=== PATIENT | male | born 1960 | race Caucasian/White ===

== ENCOUNTER 2016-12-31 12:12 | Day surgery (SDC) | payer MEDICAID ==
[~2016-12-31] VITALS: Ht 279.4 cm; Wt 81.8 kg
[~2016-12-31 12:12] MED LIST: COREG6.25 MG PO; GLUCOTROL XL 1010 MG PO; LIPITOR10 MG PO; OFEV PO; OMEPRAZOLE40 MG PO; ZANTAC150 MG PO
[2016-12-31 12:56] VITALS: BP 116/85; Ht 279.4 cm; Wt 81.8 kg
[2016-12-31 13:36] LABS: BASOPHILS 0.3 % (0.0-2.0); EOSINOPHILS 1.7 % (0-7); HEMATOCRIT 47.8 % (42.0-54.0); HEMOGLOBIN 16.1 g/dL (13.5-17.5); IMMATURE GRANULOCYTES 0.2 % (0-5); LYMPHOCYTES 45.8 % (15-50); MCH 31.7 pg (26.0-34.0); MCHC 33.7 g/dL (31.0-37.0); MCV 94.1 fL (80.0-100.0); MEAN PLATELET VOLUME 10.7 fL (7.4-10.4); MONOCYTES 7.8 % (2-11); NEUTROPHILS 44.2 % (40-80); RBC 5.08 10x6/uL (4.20-6.10); RDW 12.9 % (11.5-14.5); WBC 9.8 10x3/uL (4.8-10.8)
[2016-12-31 13:38] LABS: PLATELET COUNT 219 10x3/uL (130-400)
[2016-12-31 14:00] LABS: CALC OSMOLALITY 278 mosm/kg (275-300); CALCIUM 8.9 mg/dL (8.5-10.1); CARBON DIOXIDE 27.8 mmol/L (21.0-32.0); CHLORIDE - SERUM 103 mmol/L (98-107); GLUCOSE 110 mg/dL (74-106); POTASSIUM - SERUM 3.5 mmol/L (3.5-5.1); SODIUM 140 mmol/L (136-145); UREA NITROGEN 11 mg/dL (7-18); eGFR NON AFRICAN AMERICAN 83 mL/min (90-120)
--- NOTE | 2016-12-31 17:30 | NUR ---
DR MALIK SPOKE WITH PATIENT. DISCHARGE INSTRUCTIONS GIVEN, VOICED UNDERTSTANDING.
--- NOTE | 2016-12-31 17:45 | NUR ---
DISCHARGED HOME VIA .
--- NOTE | 2017-01-06 13:54 | OP ---
PATIENT NAME: SEBASTIAN MOLINA MEDICAL RECORD: [id number] :64 LOCATION:[facility] ADMISSION DATE: SURGEON: CB MALIK MD DATE OF OPERATION: 12/31/2016 PROCEDURE: Colonoscopy with biopsy. REFERRING PHYSICIAN: Dr. Helton. INDICATIONS: Mr. Molina is a very pleasant 56-year-old gentleman with a history of pulmonary fibrosis and peptic ulcer disease. EGD on 05/07/2016 showed 3 antral ulcers (biopsies negative for H. pylori). Follow up EGD on 08/05/2016 showed healed gastric ulcer, small hiatal hernia, mild gastritis. He presents for outpatient screening colonoscopy. PREMEDICATIONS: Total IV anesthesia (pulmonary fibrosis) propofol 300 mg. INSTRUMENT: [employer] video colonoscope. PROCEDURE AND FINDINGS: After receiving informed consent, Mr. Molina was placed in left lateral decubitus position, sedated as per anesthesia. After achieving an adequate level of sedation, digital rectal exam was performed that showed no external hemorrhoidal tags, fissures or fistulas, normal sphincter tone, no palpable rectal masses. Colonoscope was introduced per rectally and advanced to the cecum. The cecum, IC valve, and appendiceal orifice were identified and appeared normal. As the colonoscope was withdrawn, careful inspection was made of the nayak of the colon. Overall, mucosa had normal vascular and fold pattern. There was mild patchy erythema noted in the mucosa of the descending and sigmoid colon and biopsies were taken from these regions to rule out microscopic colitis. Retroflexion in rectum showed mild internal hemorrhoids with a few hemorrhoidal tags. Withdrawal time was 7 minutes. Mr. Molina, tolerated the procedure well, no immediate complications. ASSESSMENT: 1. Nonspecific erythema involving the left colon may be prep related, status post biopsy. 2. Mild internal hemorrhoids. RECOMMENDATIONS: 1. Follow up histopathology. 2. High fiber diet. 3. Screening colonoscopy in 5 years. TRANSINT:[id number] Voice Confirmation ID: [id number] DOCUMENT ID: [id number] CB MALIK MD at 1354 CC: VIVIAN HELTON and ADELA STARK MD [id number] DICTATION DATE: 12/31/16 1606 [employer] SUPERVISOR: 12/31/162000 [facility] 12/31/16 [id number] [place] [address]
== END 2016-12-31 17:45 | disposition home or self-care (01) ==
LOC: D.OPS 12:12
PROVIDERS: Anesthesiology
DX: Z12.11 Encounter for screening for malignant neoplasm of colon (principal); K52.9 Noninfective gastroenteritis and colitis, unspecified; K64.8 Other hemorrhoids; K64.4 Residual hemorrhoidal skin tags; K44.9 Diaphragmatic hernia without obstruction or gangrene; Z87.11 Personal history of peptic ulcer disease; J84.10 Pulmonary fibrosis, unspecified